=== PATIENT | female | born 1995 | race Caucasian/White ===

== ENCOUNTER 2019-10-14 10:50 | Outpatient (CLI) | payer OTHER, SELFPAY ==
[2019-10-14 12:19] LABS: Hematocrit 31.4 % (37.0-47.0); Hemoglobin 10.6 g/dL (12.0-15.0)
[2019-10-14 12:33] LABS: Glucose 1 Hour PP 50gm Dose 124 mg/dL
[2019-10-14 13:13] LABS: HIV 1/2 Ab P24 Ag Result Negative (Negative)
[2019-10-15 13:36] LABS: Rapid Plasma Reagin Non-Reactive (NonReactive)
== END 2019-10-14 10:51 | disposition home or self-care (01) ==
PROVIDERS: Visit Provider Obstetrics & Gynecology
DX: O36.0130 Maternal care for anti-D [Rh] antibodies, third trimester, not applicable or unspecified (principal); Z36.89 Encounter for other specified antenatal screening; Z3A.00 Weeks of gestation of pregnancy not specified
CPT/HCPCS: 36415; 82947; 85014; 85018; 86592; 86703; 86900; 86901; G0432

== ENCOUNTER 2019-10-21 21:00 | Observation (INO) | payer OTHER, SELFPAY ==
[2019-10-21] VITALS (11 sets, daily range): BP systolic 101–140; BP diastolic 73–90; PULSE 69–85; BMI 20.1
--- NOTE | 2019-10-21 21:52 | OBADM ---
This patient, Shirin Luna, admitted to the OB room OB Post 117 for observation. Patient/family oriented to hospital policies and general routines including ID bracelet, bed and alarms, visiting hours, pain management, procedures, bathroom and other care routines, personal items, smoking policy, room service/diet, and visiting hours. Patient/Family are encouraged to report perceived risks to care and to ask questions if they do not understand what they are told or what they should do.
[2019-10-21] MEDS: RHO(D) IMMUNE GLOBULIN 300 MCG SYRINGE IM (23:12)
[2019-10-22] VITALS: BP 127/78; PULSE 70
--- NOTE | 2019-10-26 12:52 | PM.OBTRLD ---
OB - Triage/Final Diagnosis Evaluation Laboratory results: Laboratory Tests 10/21/19 10/21/19 21:26 21:28 Blood Type AB Negative Antibody Screen Negative Screen TNP Baby's Blood Type TNP Baby's JANY TNP KB Hemoglobin Negative Doses of RhIg Required 1 Final Diagnosis (1) Fall: Code(s): W19.XXXA - Unspecified fall, initial encounter Status: Acute
== END 2019-10-22 00:15 | disposition home or self-care (01) ==
PROVIDERS: Admitting Provider Obstetrics & Gynecology; Visit Provider Obstetrics & Gynecology
DX: O99.89 Other specified diseases and conditions complicating pregnancy, childbirth and the puerperium (principal); Z3A.29 29 weeks gestation of pregnancy; W19.XXXA Unspecified fall, initial encounter
CPT/HCPCS: 36415; 85460; 86850; 86900; 86901; 90384; G0378; G0379; J2790

== ENCOUNTER 2019-11-04 12:07 | Observation (INO) | payer OTHER, SELFPAY ==
[2019-11-04] VITALS (17 sets, daily range): BP systolic 122–140; BP diastolic 72–103; PULSE 74–110; RESP 20; TEMP 36.5–36.9; BMI 20.1
--- NOTE | 2019-11-04 12:50 | OBADM ---
This patient, Shirin Luna, admitted to the OB room 116 at 1207 for observation for cramping. Patient/family oriented to hospital policies and general routines including ID bracelet, bed and alarms, visiting hours, pain management, procedures, bathroom and other care routines, personal items, smoking policy, room service/diet, and visiting hours. Patient/Family are encouraged to report perceived risks to care and to ask questions if they do not understand what they are told or what they should do.
[2019-11-04 13:17] LABS: Add Urine Microscopic? YES; Appearance Urine Clear (Clear); Bacteria Urine Trace /hpf; Bilirubin Urine Negative (Negative); Blood Urine Negative (Negative); Color Urine Yellow (Yellow); Glucose Urine UA Negative (Negative); Ketones Urine Negative (Negative); Leukocyte Esterase Ur 3+ LEU/UL (Negative); Mucus Urine Rare /lpf; Nitrate Urine Negative (Negative); Protein Urine Negative (Negative); Specific Grav Ur 1.012 (1.001-1.035); Squamous Epithelial Cell Urine Occasional /hpf (Few); Urobilinogen Urine Negative mg/dL (<2.0); WBC Urine 0-3 /hpf
[2019-11-04] MEDS: TERBUTALINE SULFATE 1 MG/ML VIAL 0.25 MG SUB-Q ×2 (13:25→14:32)
[2019-11-04 14:14] LABS: Fetal Fibronectin Positive
[2019-11-04] MEDS: NIFEdipine 30 MG TAB.ER.24 PO (15:03)
[2019-11-04] MEDS: BETAMETHASONE SOD PHOS/ACETATE 30 MG/5 ML VIAL 12 MG IM (15:04)
[2019-11-04] MEDS: NITROFURANTOIN MONOHYD MACROCR 100 MG CAP PO (20:51)
--- NOTE | 2019-11-05 07:54 | PM.IMHP ---
H&P: HPI History of Present Illness Chief complaint: contractions Narrative: Shirin Luna is a 24 year old female Review of Systems Review of Systems: All systems reviewed & are unremarkable except as noted in HPI and below Meds Home Medications and Allergies Home Medications Medication Instructions Recorded Confirmed Type PNV cmb#95-ferrous fumarate-FA 1 tablet PO DAILY 11/04/19 11/04/19 History [] Allergies Allergy/AdvReac Type Severity Reaction Status Date / Time Sulfa (Sulfonamide Allergy Hives Verified 11/04/19 12:43 Antibiotics) Vital Signs Vital Signs - 24 hr 11/04/19 12:42 11/04/19 12:45 11/04/19 13:00 Temperature 36.6 C Pulse Rate 77 77 Respiratory Rate Blood Pressure 128/85 130/83 11/04/19 13:27 11/04/19 13:30 11/04/19 14:00 Temperature Pulse Rate 74 89 110 H Respiratory Rate Blood Pressure 122/84 126/92 H 138/84 11/04/19 14:30 11/04/19 15:00 11/04/19 15:30 Temperature 36.5 C Pulse Rate 101 H 105 H 96 Respiratory Rate Blood Pressure 130/91 H 135/81 140/103 H 11/04/19 15:34 11/04/19 16:00 11/04/19 17:00 Temperature Pulse Rate 99 105 H 109 H Respiratory Rate Blood Pressure 123/85 134/88 124/81 11/04/19 18:00 11/04/19 19:00 11/04/19 19:02 Temperature 36.8 C Pulse Rate 93 96 Respiratory Rate 20 Blood Pressure 130/72 134/73 11/04/19 19:18 11/04/19 23:51 Temperature 36.9 C Pulse Rate 106 H 92 Respiratory Rate 20 Blood Pressure 135/95 H 124/86 Exam Const: General: no acute distress Eyes: General: appearance normal, both eyes and all related structures Cardio: Rate: regular rate GI: GI Palp: Yes Soft to palpation Extrem: General: normal to inspection H&P: Results Labs Labs: Urine 11/04/19 Range/Units 13:00 Urine Color Yellow (Yellow) Urine Appearance Clear (Clear) Urine pH 7.0 (5.0-9.0) Ur Specific [place] 1.012 (1.001-1.035) Urine Protein Negative (Negative) mg/dL Urine Glucose (UA) Negative (Negative) mg/dL Assessment and Plan Additional Plan contractions, cervix closed, pt going to stay until betamethasone dose x 2, continue to monitor for PTL.
[2019-11-05 08:00] VITALS: BP 128/82; PULSE 91
[2019-11-05 08:27] VITALS: PULSE 108; O2SAT 99
[2019-11-05] MEDS: TERBUTALINE SULFATE 1 MG/ML VIAL 0.25 MG SUB-Q (08:30)
[2019-11-05] MEDS: NITROFURANTOIN MONOHYD MACROCR 100 MG CAP PO (08:30)
[2019-11-05 08:32] VITALS: PULSE 104; O2SAT 100
[2019-11-05 08:37] VITALS: PULSE 139; O2SAT 100
[2019-11-05] MEDS: ACETAMINOPHEN 325 MG TABLET 650 MG PO (08:39)
[2019-11-05 08:42] VITALS: PULSE 121; O2SAT 99
[2019-11-05] MEDS: BETAMETHASONE SOD PHOS/ACETATE 30 MG/5 ML VIAL 12 MG IM (15:19)
[2019-11-05] MEDS: NIFEdipine 30 MG TAB.ER.24 PO (15:19)
--- NOTE | 2019-11-12 07:44 | PM.OBTRLD ---
OB - Triage/Final Diagnosis Visit Information Date of evaluation: 11/08/19 Reason for evaluation: threatened labor Evaluation Laboratory results: Laboratory Tests 11/04/19 11/04/19 13:00 13:32 Urine Color Yellow Urine Appearance Clear Urine pH 7.0 Ur Specific [place] 1.012 Urine Protein Negative Urine Glucose (UA) Negative Urine Ketones Negative Ur Blood (Man) Negative Urine Nitrate Negative Urine Bilirubin Negative Urine Urobilinogen Negative Leukocyte Esterase Rfl 3+ H Urine RBC 3-5 H Urine WBC 0-3 Ur Squamous Epith Cells Occasional Urine Bacteria Trace Urine Mucus Rare Fibronectin Positive
== END 2019-11-05 16:55 | disposition home or self-care (01) ==
PROVIDERS: Admitting Provider Obstetrics & Gynecology; Visit Provider Obstetrics & Gynecology
DX: O47.03 False labor before 37 completed weeks of gestation, third trimester (principal); Z3A.31 31 weeks gestation of pregnancy
CPT/HCPCS: 81001; 82731; 84112; 96372; A9270; G0378; G0379; J0702; J3105

== ENCOUNTER 2019-12-17 15:57 | Outpatient (CLI) | payer OTHER, SELFPAY ==
[2019-12-17 16:12] VITALS: BP 138/83; PULSE 66
[2019-12-17 16:15] VITALS: BP 147/88; PULSE 63
[2019-12-17 16:27] LABS: Basophils Percent Auto 0.3 % (0.2-1.2); Eosinophils Absolute Auto 0.2 K/mm3 (0-0.3); Eosinophils Percent Auto 1.4 % (0-4.4); Hematocrit 32.5 % (37.0-47.0); Hemoglobin 10.9 g/dL (12.0-15.0); Immature Granulocyte Absolute 0.04 K/mm3 (0.00-0.031); Immature Granulocyte Percent A 0.3 % (0-0.5); Lymphocytes Absolute Auto 2.28 K/mm3 (0.9-3.2); Lymphocytes Percent Auto 19.1 % (18.3-44.2); Mean Corpuscular HGB Conc 33.5 g/dl (32-36); Mean Corpuscular Hemoglobin 30.4 pg (26-34); Mean Corpuscular Volume 90.8 fl (80-100); Mean Platelet Volume 11.1 fl (7.4-10.4); Monocytes Percent Auto 8.4 % (2.6-8.5); Neutrophils Absolute Auto 8.4 K/mm3 (1.3-6.7); Neutrophils Percent Auto 70.5 % (45.5-73.1); Platelet Count Result 229 k/mm3 (150-375); Red Blood Count 3.58 M/mm3 (4.2-5.4); Red Cell Distribution Width 13.2 % (11.5-14.5)
[2019-12-17 16:30] VITALS: BP 135/74; PULSE 61
[2019-12-17 16:42] LABS: Alanine Aminotransferase 11 U/L (4-35); Albumin Level 3.7 g/dL (3.5-5.1); Alkaline Phosphatase 229 U/L (38-126); Aspartate Amino Transferase 20 U/L (14-36); Bilirubin,Total 0.2 mg/dL (0.2-1.3); Blood Urea Nitrogen 6 mg/dL (7-17); Carbon Dioxide 19 mmol/L (22-30); Chloride 107 mmol/L (98-107); Estimated Glomerular Filt Rate > 60; Glucose 87 mg/dL (65-105); Potassium 3.6 mmol/L (3.4-5.0); Sodium 135 mmol/L (137-145); Uric Acid 4.7 mg/dL (2.5-7.5)
[2019-12-17 16:45] VITALS: BP 128/81; PULSE 72
[2019-12-17 16:50] VITALS: BP 138/83; PULSE 66
[2019-12-17 17:00] VITALS: BP 131/95; PULSE 77
[2019-12-17 17:04] LABS: Creatinine Urine 47.6 mg/dL; Total Protein Urine Random 14 mg/dL
== END 2019-12-17 17:29 | disposition home or self-care (01) ==
LOC: ANHOBOP 16:02 → ANHOBPP 16:03
PROVIDERS: Visit Provider Obstetrics & Gynecology
DX: O13.9 Gestational [pregnancy-induced] hypertension without significant proteinuria, unspecified trimester (principal)
CPT/HCPCS: 36415; 59025; 80053; 82570; 84156; 84550; 85025; 99199

== ENCOUNTER 2019-12-24 05:55 | Inpatient (IN) | payer OTHER, SELFPAY ==
[2019-12-24] VITALS (87 sets, daily range): BP systolic 110–167; BP diastolic 65–104; PULSE 54–133; RESP 18; TEMP 36.7–37.6; O2SAT 81–100
--- NOTE | 2019-12-24 07:13 | WPDOBADMIT ---
Obstetrics - Admit Note Admission Note: record reviewed. No pertinent additions to the history and/or any subsequent changes in the physical findings that are not consistent with the expected course of the were found. EIL at 39 weeks gestation. SVE 2-3/80/-1 AROM minimal amount of clear fluid Additions to the history and/or subsequent changes in the physical findings follow. None.
[2019-12-24] MEDS: LACTATED RINGERS 1,000 ML 125 ML IV CONT ×2 (07:17→17:25)
[2019-12-24] MEDS: AMPICILLIN 2 GM/NS 100 ML 2 GM/100 ML BAG IVPB (07:19)
[2019-12-24] MEDS: OXYTOCIN 30 UNITS/NS 500 ML 30 UNITS/500 ML BAG 6 UNITS IV CONT (07:19)
[2019-12-24 07:23] LABS: Basophils Percent Auto 0.4 % (0.2-1.2); Eosinophils Absolute Auto 0.2 K/mm3 (0-0.3); Eosinophils Percent Auto 2.2 % (0-4.4); Hematocrit 31.9 % (37.0-47.0); Hemoglobin 10.7 g/dL (12.0-15.0); Immature Granulocyte Absolute 0.05 K/mm3 (0.00-0.031); Immature Granulocyte Percent A 0.6 % (0-0.5); Lymphocytes Absolute Auto 2.58 K/mm3 (0.9-3.2); Lymphocytes Percent Auto 28.6 % (18.3-44.2); Mean Corpuscular HGB Conc 33.5 g/dl (32-36); Mean Corpuscular Hemoglobin 30.1 pg (26-34); Mean Corpuscular Volume 89.9 fl (80-100); Monocytes Absolute Auto 0.8 K/mm3 (0.1-0.6); Monocytes Percent Auto 8.5 % (2.6-8.5); Neutrophils Absolute Auto 5.4 K/mm3 (1.3-6.7); Neutrophils Percent Auto 59.7 % (45.5-73.1); Platelet Count Result 218 k/mm3 (150-375); Red Blood Count 3.55 M/mm3 (4.2-5.4)
[2019-12-24 07:37] LABS: Alanine Aminotransferase 11 U/L (4-35); Albumin Level 3.5 g/dL (3.5-5.1); Alkaline Phosphatase 227 U/L (38-126); Aspartate Amino Transferase 19 U/L (14-36); Bilirubin,Total 0.2 mg/dL (0.2-1.3); Blood Urea Nitrogen 9 mg/dL (7-17); Calcium 8.7 mg/dL (8.4-10.2); Carbon Dioxide 21 mmol/L (22-30); Chloride 108 mmol/L (98-107); Estimated Glomerular Filt Rate > 60; Glucose 81 mg/dL (65-105); Potassium 3.5 mmol/L (3.4-5.0); Sodium 134 mmol/L (137-145)
--- NOTE | 2019-12-24 07:52 | LDADM ---
This patient, Shirin Luna, was admitted to Labor/Delivery/Recovery 103 on 12/24/19 at 05:55. Plans for labor, pain management and were discussed with patient. Patient/family oriented to hospital policies and general routines including ID bracelet, bed and alarms, visiting hours, pain management, procedures, bathroom and other care routines, personal items, smoking policy, room service/diet and guest tray routines, security routines,call light and visiting hours. Patient/Family are encouraged to report perceived risks to care and to ask questions if they do not understand what they are told or what they should do. See OBIX for further documentation.
[2019-12-24 09:31] LABS: Rapid Plasma Reagin Non-Reactive (NonReactive)
--- NOTE | 2019-12-24 10:55 | WPDANESEPPF ---
Anes - Initial Pre Proc Eval Procedure: Labor Epidural Date/Time: 12/24/19 10:55 Surgeon: Shannon Anglin MD Pre Op Diagnosis: INDUCTION OF LABOR Patient Data Age: 24 Gender: F Height: Weight: Last Vital Signs Temp 36.7 C 12/24/19 07:05 Pulse 66 12/24/19 08:31 BP 145/94 H 12/24/19 08:31 Allergies Allergy/AdvReac Type Severity Reaction Status Date / Time Sulfa (Sulfonamide Allergy Hives Verified 12/04/19 14:37 Antibiotics) Home Medications Medication Instructions Recorded Confirmed Type PNV cmb#95-ferrous fumarate-FA 1 tablet PO DAILY 11/04/19 11/04/19 History [] Laboratory Tests 12/24/19 12/24/19 12/24/19 07:07 07:07 07:07 WBC 9.0 K/mm3 K/mm3 (4.5-10.0) RBC 3.55 M/mm3 L M/mm3 (4.2-5.4) Hgb 10.7 g/dL L g/dL (12.0-15.0) Hct 31.9 % L % (37.0-47.0) MCV 89.9 fl fl (80-100) MCH 30.1 pg pg (26-34) MCHC 33.5 g/dl g/dl (32-36) RDW 13.0 % % (11.5-14.5) Plt Count 218 k/mm3 k/mm3 (150-375) MPV 11.0 fl H fl (7.4-10.4) Immature Gran % (Auto) 0.6 % H % (0-0.5) Neut % (Auto) 59.7 % % (45.5-73.1) Lymph % (Auto) 28.6 % % (18.3-44.2) [place] % (Auto) 8.5 % % (2.6-8.5) Eos % (Auto) 2.2 % % (0-4.4) Baso % (Auto) 0.4 % % (0.2-1.2) Lymph # (Auto) 2.58 K/mm3 K/mm3 (0.9-3.2) [place] # (Auto) 0.8 K/mm3 H K/mm3 (0.1-0.6) Eos # (Auto) 0.2 K/mm3 K/mm3 (0-0.3) Baso # (Auto) 0.0 K/mm3 K/mm3 (0.0-0.1) Abs Immat Gran (auto) 0.05 K/mm3 H K/mm3 (0.00-0.031) Absolute Neuts (auto) 5.4 K/mm3 K/mm3 (1.3-6.7) Absolute Nucleated RBC 0.0 K/mm3 K/mm3 (0.0-0.012) Nucleated RBC % 0.0 % % (0.0-0.2) Sodium Potassium Chloride Carbon Dioxide BUN Creatinine Estim Creat Clear Calc Estimated GFR Glucose Calcium Total Bilirubin AST ALT Alkaline Phosphatase Total Protein Albumin RPR Non-reactive (NonReactive) Blood Type AB Negative Antibody Screen Positive Antibody Identification Pending Antigen Identification Pending JANY, IgG Interpret Pending JANY, Poly Interpret Pending JANY, Complement Interp Pending 12/24/19 07:07 WBC RBC Hgb Hct MCV MCH MCHC RDW Plt Count MPV Immature Gran % (Auto) Neut % (Auto) Lymph % (Auto) [place] % (Auto) Eos % (Auto) Baso % (Auto) Lymph # (Auto) [place] # (Auto) Eos # (Auto) Baso # (Auto) Abs Immat Gran (auto) Absolute Neuts (auto) Absolute Nucleated RBC Nucleated RBC % Sodium 134 mmol/L L mmol/L (137-145) Potassium 3.5 mmol/L mmol/L (3.4-5.0) Chloride 108 mmol/L H mmol/L (98-107) Carbon Dioxide 21 mmol/L L mmol/L (22-30) BUN 9 mg/dL mg/dL (7-17) Creatinine 0.50 mg/dL L mg/dL (0.7-1.0) Estim Creat Clear Calc Not Reportable Estimated GFR > 60 (59 - ) Glucose 81 mg/dL mg/dL (65-105) Calcium 8.7 mg/dL mg/dL (8.4-10.2) Total Bilirubin 0.2 mg/dL mg/dL (0.2-1.3) AST 19 U/L U/L (14-36) ALT 11 U/L U/L (4-35) Alkaline Phosphatase 227 U/L H U/L (38-126) Total Protein 7.0 g/dL g/dL (6.3-8.2) Albumin 3.5 g/dL g/dL (3.5-5.1) RPR Blood Type Antibody Screen Antibody Identification Antigen Identification JANY, IgG Interpret JANY, Poly Interpret JANY, Complement Interp Patient hx anesthesia problems: none Family hx anesthesia problems: none
[2019-12-24] MEDS: AMPICILLIN 1 GM/NS 50 ML 1 GM/50 ML BAG IVPB (10:58)
--- NOTE | 2019-12-24 18:39 | PM.OBPRVD ---
OB - Delivery Note Procedure Delivery date: 12/24/19 Procedure: vaginal delivery Intrapartal events: Ineffective Pushing Induction method: AROM and per pitocin protocol Delivery monitor: external FHT and external uterine Route of delivery: Episiotomy description: Right Mediolateral Delivery repair: vicryl Specimen: No Estimated blood loss (mL): 200 Anesthesia type: Epidural (and local for repair) Disposition: other () Baby Date of : 12/24/19 Time of : 18:15 Weeks of gestation at delivery: 39 gender: Male Weight (pounds): 6 Weight (ounces): 10 presentation: vertex position: Right Occiput Anterior Placenta delivery description: Spontaneous cord vessel description: 3 Vessels, Nuchal Cord and Loose score one minute: 4 score five minutes: 7 Narrative: Dr. Anglin called. pt complete and pushing x 3 hours +4 station, maternal exhaustion, vacuum placed and held through 1 pull, 1 contraction with no pop offs, head delivered, shoulder dystocia, suprapubic pressure, episiotomy, Dr. Anglin able to maneuver and fetus delivered, to nursery nurse and taken to warmer,
[2019-12-24] MEDS: OXYTOCIN 30 UNITS/NS 500 ML 30 UNITS/500 ML BAG 125 UNITS IV CONT (18:47)
[2019-12-24] MEDS: IBUPROFEN 600 MG TABLET PO (22:19)
--- NOTE | 2019-12-24 22:44 | OBPPTRN ---
Patient transferred to post room #292 via wheelchair. Support person present. Oriented to unit, room, information board, admission packet and security measures. Patient verbalizes understanding.
[2019-12-25] MEDS: IBUPROFEN 600 MG TABLET PO ×2 (05:17→16:22)
[2019-12-25 05:20] LABS: Hematocrit 25.4 % (37.0-47.0); Hemoglobin 8.4 g/dL (12.0-15.0)
[2019-12-25 08:35] VITALS: BP 116/74; PULSE 68; RESP 16; TEMP 36.5
[2019-12-25] MEDS: MULTIVIT/MIN/PREN/FOL AC/IRON TABLET 1 TAB PO (09:00)
[2019-12-25] MEDS: POLYSACCHARIDE IRON COMPLEX 150 MG CAPSULE PO ×2 (09:00→16:23)
[2019-12-25] MEDS: DOCUSATE SODIUM 100 MG CAPSULE PO ×2 (09:00→16:23)
--- NOTE | 2019-12-25 11:06 | PM.OBPNVD ---
OB - PN: Subj Subjective Date/time seen: 12/25/19 11:06 Patient comments: no complaints baby status: doing well OB - PN: Obj Data Labs CBC & Chem 7: 12/25/19 05:12 12/24/19 07:07 Labs: Laboratory Results - last 24 hr 12/24/19 12/25/19 07:07 05:12 Hgb 8.4 L Hct 25.4 L Antibody Identification Passive Due to RH Imm Glob Antigen Identification Cancelled JANY, IgG Interpret Negative JANY, Poly Interpret Negative JANY, Complement Interp Not Performed OB - PN A/P Plan day: 1 Plan: routine care Time Spent With Patient Time: Total time spent is greater than 50% in coordination of care (as documented) at patient's floor/unit and/or counseling patient: Review of Systems Review of Systems: All systems reviewed & are unremarkable except as noted in HPI and below Exam Const: General: comfortable Psych: Appearance: grossly normal Affect: normal affect Attitude: cooperative Judgement: Good judgement present (Psych)
--- NOTE | 2019-12-25 11:31 | WPDANLDPN2 ---
Anes-Prog Note L&D Date/Time: 12/25/19 11:31 Comfortable throughout: labor and delivery Neuraxial method: epidural Epidural/Spinal procedure site: clean & non-tender Neuro status: Neuro function grossly intact. Cardiovascular status: normal Respiratory status: normal Airway patency: baseline Mental status: baseline Post-Op hydration status: normal Vital Signs: Last Vital Signs Temp 36.5 C 12/25/19 08:35 Pulse 68 12/25/19 08:35 Resp 16 12/25/19 08:35 BP 116/74 12/25/19 08:35 Pulse Ox 98 12/24/19 23:29 I/O: Intake & Output 12/24/19 12/25/19 12/25/19 23:59 07:59 15:59 Output Total 50 Balance -50 Post-procedural complaints: none Patient feedback: Patient satisfied with anesthetic care.
[2019-12-25] MEDS: ACETAMINOPHEN 325 MG TABLET 650 MG PO (16:22)
[2019-12-25 19:14] VITALS: BP 128/83; PULSE 67; RESP 18; TEMP 37.1; O2SAT 99
[2019-12-26 07:45] VITALS: BP 123/86; PULSE 71; RESP 16; TEMP 36.7; O2SAT 99
[2019-12-26] MEDS: POLYSACCHARIDE IRON COMPLEX 150 MG CAPSULE PO (07:50)
[2019-12-26] MEDS: DOCUSATE SODIUM 100 MG CAPSULE PO (07:50)
[2019-12-26] MEDS: IBUPROFEN 600 MG TABLET PO (07:50)
[2019-12-26] MEDS: MULTIVIT/MIN/PREN/FOL AC/IRON TABLET 1 TAB PO (07:50)
[2019-12-26] MEDS: LANOLIN (LANSINOH) 7.5 GM CREAM 1 APPLIC TOPICAL (07:51)
--- NOTE | 2019-12-26 09:13 | P.PNOB_ITS ---
OB - PN: Subj Subjective Date/time seen: 12/26/19 09:13 Patient comments: no complaints baby status: doing well OB - PN: Obj Data Labs CBC & Chem 7: 12/25/19 05:12 12/24/19 07:07 OB - PN A/P Plan day: 2 Plan: discharge home Time Spent With Patient Time: Total time spent is greater than 50% in coordination of care (as documented) at patient's floor/unit and/or counseling patient: Exam 2 Const: General: comfortable Psych: Appearance: grossly normal Affect: normal affect Attitude: cooperative Judgement: Good judgement present (Psych)
--- NOTE | 2019-12-26 09:14 | P.DS_ITS ---
OB - DS: Summary OB Procedures : None OB Procedures Intrapartum: Vacuum extraction and Episiotomy OB Procedures: : None Time Spent with Patient Time attestation: Total time spent providing and/or coordinating discharge servi waqar: Discharge Plan Discharge Attending physician on discharge: Shannon Anglin Discharging Clinician: Naomy Darby Patient Disposition: Home, Self-Care Activity: pelvic rest Diet: regular Discharge Instructions: Education: Mom and Baby Guide Given to: Mother Follow-Up: Call your delivering provider's office for an appointment to be seen in: call for appointment Mom and baby should come to the [facility] for the follow-up appointment. Appointment Date/Time: December 28, 2019 at 8:00 am What to expect at your follow-up visit: Physical Assessment Call [phone] if you are unable to keep your appointment time. BREAST CARE: 1. Wear a snug supportive bra. 2. For engorgement discomfort: Breast Feeding: A. Apply warm moist washcloths B. Express milk as needed to relieve engorgement C. Wear loose clothing 3. For sore nipples: A. Identify correct latch-on B. Apply warm moist washcloths before and after nursing C. Air dry nipples after nursing D. May apply Lansinoh cream to nipples EPISIOTOMY/PERINEAL CARE: 1. Until bleeding stops, use your fermín bottle after urinating 2. Change your pad frequently throughout the day 3. You may take sitz baths several times a day (fill your bathtub with warm water and soak for 20 minutes.) Do NOT bathe in the water 4. No tub baths until seen by your physician - You may shower ACTIVITY: 1. Rest as much as possible. 2. Do not exercise or lift anything heavier than your baby (such as laundry or other children.) 3. Avoid stairs or driving as much as possible. 4. Do not put anything into the vagina. No douching, tampons, or sexual activity until seen by physician. NOTIFY PHYSICIAN IF YOU HAVE ANY QUESTIONS OR IF ANY OF THE FOLLOWING SYMPTOMS OCCUR: 1. If your episiotomy or incision becomes red, swollen, or more painful than wh at you have experienced in the hospital. 2. If your vaginal bleeding becomes foul smelling. 3. If your vaginal bleeding becomes more heavy than a period or if your bleeding changes from pink to bright red. However, you may pass an occasional walnut- sized clot once or twice for the first week . 4. If you experience a sharp, shooting pain in you calves. 5. If you discover a hard, reddened area on your breast or if you experience flu-like symptoms. DIET: 1. Eat regular, well-balanced meals. 2. Drink plenty of fluids daily. If , drink to thirst. Patient Instructions: Antibiotic Form Stand Alone Forms: General Discharge Information Follow-up/Referrals: Naomy Darby CNM [Certified Nurse Motel Manager] - 4 Weeks Discharge Medications: New hydrocodone-acetaminophen 5-325 mg Tablet 1 tab PO Q3HR PRN (Reason: Pain Rated 4-6) Qty: 20 RF: 0 polysaccharide iron complex 150 mg iron Capsule 150 mg PO BIDWM Qty: 30 RF: 0 Continued PNV cmb#95-ferrous fumarate-FA [] 28 mg iron- 800 mcg Tablet 1 tablet PO DAILY RF: 0 Date of admission: 12/24/19 05:55 Primary Care Provider: UNKNOWN,DOCTOR Admitting Provider: Shannon Anglin Attending physician on admission: Shannon Anglin
--- NOTE | 2019-12-26 14:17 | PC.NURSE ---
Patient viewed the discharge video Mother & Baby Care, The First Two Weeks . Patient was given the opportunity and encouraged to ask questions. Patient verbalized understanding of information shared and has been given the mother/baby guide for home reference.
[2019-12-28 08:52] VITALS: BP 125/84; PULSE 81; RESP 16; TEMP 36.9; O2SAT 100
== END 2019-12-26 14:10 | disposition home or self-care (01) | DRG 807 ==
LOC: ANHLDR 05:58 → ANHOB2 22:22
PROVIDERS: Advanced Practice Midwife; Admitting Provider Obstetrics & Gynecology; Visit Provider Obstetrics & Gynecology
DX: O13.4 Gestational [pregnancy-induced] hypertension without significant proteinuria, complicating childbirth (principal); Z37.0 Single live birth; O99.824 Streptococcus B carrier state complicating childbirth; O66.0 Obstructed labor due to shoulder dystocia; O69.89X0 Labor and delivery complicated by other cord complications, not applicable or unspecified; Z3A.39 39 weeks gestation of pregnancy; Z87.891 Personal history of nicotine dependence
CPT/HCPCS: 36415; 80053; 85014; 85018; 85025; 86592; 86850; 86880; 86900; 86901; 86902; A9270; J0290; J2590; J2795; J3010; J7120

== ENCOUNTER 2019-12-29 21:37 | Emergency (ER) | payer OTHER, SELFPAY ==
--- NOTE | ~2019-12-29 | CT_ITS ---
EXAMINATION: CT abdomen pelvis w con DATE: 12/29/2019 22:51 INDICATION: Recent presenting with pelvic pain TECHNIQUE: Computed tomography (CT) of the abdomen and pelvis was performed with 100 mL Omnipaque-350 intravenous contrast. Automated exposure control and iterative reconstruction technique were employe d. The dose-length product was 196.10 mGy-cm. COMPARISON: 10/24/2017 FINDINGS: Lung bases are clear. Heart size is normal. No pericardial or pleural effusion. Liver, gallbladder, s pleen, pancreas, bilateral adrenal glands and left kidney are normal. Very mild right hydronephrosis with no evident obstructing stone or mass. Symmetric renal parenchymal enhancement. Appendix is doreen l. Moderate amount of stool scattered throughout the colon. No abnormal bowel wall thickening or obst ruction. Enlarged anteverted post gravid uterus. Bladder is normal. Bilateral adnexa are unremarkable . No abscess or free intraperineal gas or fluid. Mild lumbar and lower thoracic spondylosis. IMPRESSION: 1. Very mild right hydronephrosis without evident obstructing stone or mass which could represent res idual effects of compression from the previously gravid uterus. No other acute intra-abdominal/pelvic process. Reviewed, dictated and finalized at location A. IMPRESSION: 1. Very mild right hydronephrosis without evident obstructing stone or mass whi ch could represent residual effects of compression from the previously gravid u terus. No other acute intra-abdominal/pelvic process.
[2019-12-29 21:39] VITALS: BP 147/106; PULSE 96; RESP 18; TEMP 36.7; O2SAT 100
--- NOTE | 2019-12-29 21:51 | ED.FEMALEGU ---
HPI - Female Genitourinary General Chief complaint: Vaginal Bleeding Stated complaint: vaginal bleeding Time Seen by Provider: 12/29/19 21:50 Source: patient Mode of arrival: ambulatory Limitations: no limitations History of Present Illness HPI Narrative: The patient is a 24-year-old female who is approximately 5 days from a vaginal delivery that required vacuum assist, shoulder dystocia, who presents to the emergency department for evaluation of vaginal bleeding and abdominal cramping. Patient reports she has had intermittent vaginal bleeding since delivery, but today has passed some larger blood clots and was concerned for heavier bleeding. She states that she is feeling of one large pad approximately every 3-4 hours. She is is has some associated suprapubic and pelvic cramping type pain as well as lower back pain, but states that that pain has been present since the epidural was placed. Pain is mild in nature. No syncope, lightheadedness or dizziness. No loss of consciousness. was not complicated by any medical conditions. Patient denies any headache, cough, shortness of breath or leg swelling. Related Data Home Medications Medication Instructions Recorded Confirmed PNV cmb#95-ferrous fumarate-FA 1 tablet PO DAILY 11/04/19 11/04/19 [] Allergies Allergy/AdvReac Type Severity Reaction Status Date / Time Sulfa (Sulfonamide Allergy Hives Verified 12/04/19 14:37 Antibiotics) Review of Systems Review of Systems: Narrative: CONSTITUTIONAL: Denies fever CARDIOVASCULAR: Denies chest pain RESPIRATORY: Denies cough or dyspnea. GASTROINTESTINAL: Reports pelvic pain and cramping : Reports vaginal bleeding SKIN: Denies rash MUSCULOSKELETAL: Denies back pain NEUROLOGIC: Denies headache [facility] Past Medical History Medical History (Updated 12/30/19 @ 00:12 by Yesenia Guerrero MD) Vacuum-assisted vaginal delivery Family History Family History Mother Hypertension Cerebrovascular accident Father Acute myocardial infarction Sibling Hypothyroidism Grandparent Diabetes mellitus Social History Social History Years smoked: 1 Smoking status: Former smoker Tobacco type: e-cigarettes/vaping Smoking end date: 04/26/20 Substance use: never Spiritual care concerns: No Exam Narrative: Exam Narrative: GENERAL: Awake, alert, conversant HEAD: Normocephalic, atraumatic. EYES: PERRLA and EOMI. ENT: Nares clear, no rhinorrhea or epistaxis. Mucous membranes moist. NECK: Supple. CHEST: No respiratory distress, breathing even and non labored HEART: Regular rate, sinus rhythm ABDOMEN:Non distended, mild suprapubic tenderness : Labia majora and minora normal without lesions. Episiotomy sutures in tact. Vagina with scant blood no brisk bleeding or large clots. No purulent discharge from the cervix no cervical laceration. No adnexal tenderness or fullness bilaterally. No discharge present. EXTREMITIES: Normal range of motion. No edema. SKIN: Warm, dry, no rash. NEURO:No focal deficits. Alert and oriented x3 Course Vital Signs Vital signs: Vital Signs Temperature 36.7 C 12/29/19 21:39 Pulse Rate 96 12/29/19 21:39 Respiratory Rate 18 12/29/19 21:39 Blood Pressure 147/106 H 12/29/19 21:39 Pulse Oximetry 100 12/29/19 21:39 Temperature 36.7 C 12/29/19 21:39 Pulse Rate 90 12/30/19 00:20 Respiratory Rate 18 12/30/19 00:20 Blood Pressure 129/92 H 12/30/19 00:20 Pulse Oximetry 100 12/30/19 00:20 MDM - Female Genitourinary MDM Narrative Medical decision making narrative: Patient presented to the emergency department for evaluation of vaginal bleeding and lower abdominal pain. At the time of assessment, ABCs are intact and vital signs are stable. Patient is hypertensive at the time of arrival. Patient without any leg swe
[2019-12-29] MEDS: SODIUM CHLORIDE 0.9% IV 500 ML 999 ML IV CONT (22:06)
[2019-12-29 22:09] LABS: Basophils Absolute Auto 0.1 K/mm3 (0.0-0.1); Basophils Percent Auto 0.6 % (0.2-1.2); Eosinophils Absolute Auto 0.5 K/mm3 (0-0.3); Eosinophils Percent Auto 4.1 % (0-4.4); Hemoglobin 9.8 g/dL (12.0-15.0); Immature Granulocyte Absolute 0.05 K/mm3 (0.00-0.031); Immature Granulocyte Percent A 0.4 % (0-0.5); Lymphocytes Absolute Auto 3.04 K/mm3 (0.9-3.2); Lymphocytes Percent Auto 25.7 % (18.3-44.2); Mean Corpuscular HGB Conc 32.7 g/dl (32-36); Mean Corpuscular Hemoglobin 30.2 pg (26-34); Mean Corpuscular Volume 92.6 fl (80-100); Mean Platelet Volume 10.1 fl (7.4-10.4); Monocytes Absolute Auto 0.9 K/mm3 (0.1-0.6); Monocytes Percent Auto 7.3 % (2.6-8.5); Neutrophils Absolute Auto 7.3 K/mm3 (1.3-6.7); Neutrophils Percent Auto 61.9 % (45.5-73.1); Platelet Count Result 331 k/mm3 (150-375); Red Blood Count 3.24 M/mm3 (4.2-5.4); Red Cell Distribution Width 13.6 % (11.5-14.5); White Blood Count 11.8 K/mm3 (4.5-10.0)
[2019-12-29 22:14] VITALS: BP 121/90; BP 127/92; BP 130/93
[2019-12-29 22:19] LABS: INR 0.9; Prothrombin Time 11.6 Seconds (11.1-14.7)
[2019-12-29 22:20] LABS: Partial Thromboplastin Time 31.3 SECONDS (22.3-36.8)
[2019-12-29 22:21] LABS: Alanine Aminotransferase 66 U/L (4-35); Alkaline Phosphatase 147 U/L (38-126); Aspartate Amino Transferase 47 U/L (14-36); Bilirubin,Total 0.2 mg/dL (0.2-1.3); Blood Urea Nitrogen 19 mg/dL (7-17); Calcium 8.9 mg/dL (8.4-10.2); Carbon Dioxide 25 mmol/L (22-30); Chloride 104 mmol/L (98-107); Estimated CRCL calculation 84 ml/min; Estimated Glomerular Filt Rate > 60; Glucose 83 mg/dL (65-105); Potassium 3.9 mmol/L (3.4-5.0); Sodium 138 mmol/L (137-145)
[2019-12-30 00:19] LABS: Add Urine Microscopic? YES; Appearance Urine Clear (Clear); Bilirubin Urine Negative (Negative); Blood Urine 1+ (Negative); Color Urine Colorless (Yellow); Glucose Urine UA Negative (Negative); Ketones Urine Negative (Negative); Leukocyte Esterase Ur Negative LEU/UL (Negative); Nitrate Urine Negative (Negative); Protein Urine Negative (Negative); RBC Urine 0-2 /hpf (0-2); Squamous Epithelial Cell Urine Rare /hpf (Few); Urobilinogen Urine Negative mg/dL (<2.0); WBC Urine 0-3 /hpf
[2019-12-30 00:20] VITALS: BP 129/92; PULSE 90; RESP 18; O2SAT 100
[2019-12-30 00:29] LABS: Specific Grav Ur 1.058 (1.001-1.035)
[2019-12-30 00:36] VITALS: BP 139/91; PULSE 93; RESP 18; TEMP 36.7; O2SAT 100
== END 2019-12-30 00:37 | disposition home or self-care (01) ==
PROVIDERS: Emergency Provider Emergency Medicine
DX: O72.2 Delayed and secondary postpartum hemorrhage (principal); O99.89 Other specified diseases and conditions complicating pregnancy, childbirth and the puerperium; R74.0 Nonspecific elevation of levels of transaminase and lactic acid dehydrogenase [LDH]; N13.30 Unspecified hydronephrosis; Z87.891 Personal history of nicotine dependence
CPT/HCPCS: 36415; 74177; 80053; 81001; 85025; 85610; 85730; 86850; 86880; 86900; 86901; 86902; 96360; 99284; J7040; Q9967

== ENCOUNTER 2024-05-25 08:46 | Outpatient (CLI) | payer OTHER, SELFPAY ==
[2024-05-27] MEDS: RHO(D) IMMUNE GLOBULIN 300 MCG/2 ML SYRINGE IM (16:03)
== END 2024-05-25 08:47 | disposition home or self-care (01) ==
LOC: ANHLAB 08:51
PROVIDERS: Visit Provider Obstetrics & Gynecology
DX: O36.0130 Maternal care for anti-D [Rh] antibodies, third trimester, not applicable or unspecified (principal); Z3A.00 Weeks of gestation of pregnancy not specified
CPT/HCPCS: 36415; 84702; 85461; 86850; 86900; 86901; 90384; J2790